=== PATIENT | male | born 1975 | race Two or more races ===

== ENCOUNTER → 2017-01-01 | Outpatient (CLI) | payer BC ==
--- NOTE | 2017-01-01 11:46 | CR ---
EXAMINATION: Right knee HISTORY: Pain COMPARISON: MRI dated 10/18/2015 TECHNIQUE: 4 views FINDINGS: There is no acute osseous abnormality, dislocation, or fracture identified. Bone mineraliz ation appears normal. Mild osteophyte formation is noted with minimal joint space narrowing within t he lateral compartment of the right knee. No joint effusion or soft tissue swelling. IMPRESSION: Mild to moderate degenerative changes most notable within the lateral compartment.
== END ==
LOC: MW.CHORTHO 09:21
PROVIDERS: ATTEND Orthopaedic Surgery
DX: M25.561 Pain in right knee (principal)
CPT/HCPCS: 73564-26-RT; 73564-RT